=== PATIENT | male | born 1930 | race Caucasian/White ===

== ENCOUNTER 2017-05-25 09:03 | Outpatient (CLI) | payer MEDICARE, BC ==
[~2017-05-25 09:03] MED LIST: CALC-246 PO; CHOL100044 PO; QUET25TA PO
[2017-05-25] MEDS ORDERED: GADOVERSETAMIDE 2.5 MMOL/5 ML VIAL IJ ONE (09:04)
== END 2017-05-25 23:59 | disposition home or self-care (01) ==
LOC: MRI 09:03
PROVIDERS: ATTEND Family Medicine
DX: I67.82 Cerebral ischemia (principal); R90.82 White matter disease, unspecified
CPT/HCPCS: 70553; A9579

== ENCOUNTER 2017-07-25 11:27 | Emergency (ER) | payer MEDICARE, BC ==
[~2017-07-25] VITALS: Ht 167.6 cm; Wt 66.2 kg
--- NOTE | 2017-07-25 11:45 | NUR ---
[id number], CAME TO ER FROM DR ANDERSON OFFICE FOR R INGUINAL HERNIA EVAL. RR IS EVEN AND UNLABORED WITH NAD NOTED. SKIN IS WARM AND DRY. PLACED ON MONITOR. DR LUBIN AT BS FOR EVAL.
--- NOTE | 2017-07-25 11:57 | NUR ---
paged dr cain
--- NOTE | 2017-07-25 12:26 | NUR ---
OFFICE CLOSED FOR LUNCH. LEFT MESSAGE FOR DR NICK
--- NOTE | 2017-07-25 12:35 | NUR ---
DR LUBIN TALKING TO PATIENT AND AT BS.
[2017-07-25 12:39] VITALS: BP 135/76
--- NOTE | 2017-07-25 12:40 | NUR ---
Patient discharged to home in stable condition. Written and verbal after care instructions given. Patient verbalizes understanding of instruction.
== END 2017-07-25 12:42 | disposition home or self-care (01) ==
LOC: ER 11:28
DX: K40.90 Unilateral inguinal hernia, without obstruction or gangrene, not specified as recurrent (principal)
CPT/HCPCS: A4606; Z7610